=== PATIENT | male | born 1980 | race Caucasian/White ===

== ENCOUNTER 2017-02-12 14:19 | Emergency (ER) | payer MEDICAID ==
[2017-02-12 14:25] VITALS: RESP 18
[2017-02-12] MEDS ORDERED: IPRATROPIUM/ALBUTEROL 3 ML DEYVIAL IH ONE ×2 (14:58)
[2017-02-12] MEDS ORDERED: predniSONE 20 MG TAB PO ONE ×2 (15:12)
[2017-02-12] MEDS ORDERED: ALBUTEROL 3 ML DEYVIAL IH ONE ×4 (15:12)
--- NOTE | 2017-02-12 15:14 | EDPHY ---
H & P Time Seen by Provider: 02/12/17 15:04 HPI/ROS: CHIEF COMPLAINT: Cough and short of breath HISTORY OF PRESENT ILLNESS: Patient has had asthma since he was 7 years old. His triggers are getting a cold and cats. He has been sick for the last 2 days and his rescue inhaler isn't working. He has been exposed to his stepdachina cat recently has been getting some hay fever and allergies. Symptoms moderate. Worse with coughing and exertion. Not associated with fever chills or hemoptysis or leg swelling. REVIEW OF SYSTEMS: Eye: no change in vision ENT: no sore throat Cardiac: no chest pain or syncope Pulmonary: HPI Abdomen: no vomiting, diarrhea, abdominal pain Musculoskeletal: no back pain Skin: no rash Neuro: no headache Constitutional: no fever : no urinary symptoms A comprehensive 10 point review of systems is otherwise negative aside from elements mentioned in the history of present illness. PAST MEDICAL HISTORY: Asthma since 7 years old Social history: No primary care doctor, medicate patient. No recent travel or immobilization. General Appearance: Alert and conversant, cooperative. Eyes: No scleral icterus. ENT, Mouth: Normal mucous membranes. No angioedema. Respiratory: Bilateral wheezing and prolonged expiratory phase without any focal findings. Cardiovascular: Regular rate and rhythm. Gastrointestinal: Abdomen is soft and non tender. Neurological: Alert and oriented x3. Normally conversant. Face symmetric, normal movement and sensation in all extremities. Skin: Warm and dry, no rashes. No urticaria. Musculoskeletal: No peripheral edema and no joint swelling. No calf tenderness. Psychiatric: Not agitated. Emergency Department course/MDM: Plan for nebulizer treatments and prednisone discussed and consented. [facility] follow-up. Patient presents with his typical exacerbation of asthma. 1615: Feels better, wants to go. He still has some wheezing but he speaks in full sentences. Seen by case management to facilitate primary care follow-up with [facility]. Smoking Status: Current every day smoker Constitutional: Initial Vital Signs Temperature (C) 36.9 C 02/12/17 14:20 Heart Rate 101 H 02/12/17 14:20 Respiratory Rate 18 02/12/17 14:20 Blood Pressure 143/97 H 02/12/17 14:20 O2 Sat (%) 97 02/12/17 14:20 O2 Delivery Mode Room Air Allergies/Adverse Reactions: No Known Allergies Allergy (Unverified 02/12/17 14:25) Home Medications: Medication Instructions Recorded Albuterol Hfa Anes Only [Proair 2 puffs IH QID #1 mdi 02/12/17 Hfa Icu (*)] Albuterol Sulfate [Proventil Hfa] 6.7 gm IH 02/12/17 predniSONE [prednisone 20mg (RX)] 60 mg PO DAILY 5 Days tab 02/12/17 Medical Decision Making Differential Diagnosis: Differential diagnosis considered for shortness of breath including but not limited to pulmonary infectious process, COPD, asthma, pulmonary embolus and congestive heart failure. - Data Points Medications Given: Discontinued Medications Albuterol (Proventil Neb) 3 ml IH EDNOW ONE Stop: 02/12/17 15:13 Last Admin: 02/12/17 15:31 Dose: 3 ml Albuterol/Ipratropium (Duoneb) 3 ml IH EDNOW ONE Stop: 02/12/17 14:59 Last Admin: 02/12/17 15:12 Dose: 3 ml Prednisone (Prednisone) 60 mg PO EDNOW ONE Stop: 02/12/17 15:13 Last Admin: 02/12/17 15:30 Dose: 60 mg Departure - Departure Disposition: Home, Routine, Self-Care Clinical Impression: Exacerbation of asthma Qualifiers: Asthma severity: moderate Asthma persistence: unspecified Qualified Code(s): J45.901 - Unspecified asthma with (acute) exacerbation Condition: Good Instructions: Asthma (ED) Referrals: [facility],. [Clinic] - As per Instructions Prescriptions: Albuterol Hfa Anes Only [Proair Hfa Icu (*)] 2 puffs IH QID #1 mdi predniSONE [prednisone 20mg (RX)] 60 mg PO DAILY 5 Days tab
--- NOTE | 2017-02-12 16:43 | ASMTCMCOM ---
CM Note CM Note Notes: Case Management met with patient to go over referral to [facility] for follow up care. Patient has phone number and address for clinic and states that he will call for an intake appointment and prescription refills Date Signed: 02/12/2017 04:42 PM Electronically Signed By:Paula Azevedo RN
[2017-02-12 16:46] VITALS: BP 157/82; PULSE 105; TEMP 99.3; O2SAT 93
== END 2017-02-12 16:45 | disposition home or self-care (01) ==
DX: J45.901 Unspecified asthma with (acute) exacerbation (principal); F17.200 Nicotine dependence, unspecified, uncomplicated

== ENCOUNTER 2017-07-08 19:26 | Emergency (ER) | payer MEDICAID ==
--- NOTE | 2017-07-08 19:35 | EDPHY ---
H & P Stated Complaint: ASTHMA, WORSE OVER 2 DAYS, MOVING DAUGHTER, ALLERGIC TO CATS Source: Patient Exam Limitations: No limitations - Personal History Current Tetanus/Diphtheria Vaccine: Yes - Medical/Surgical History Hx Asthma: Yes Hx Chronic Respiratory Disease: No Hx Diabetes: No Hx Cardiac Disease: No Hx Renal Disease: No Hx Cirrhosis: No Hx Alcoholism: No Hx HIV/AIDS: No Hx Splenectomy or Spleen Trauma: No Other PMH: ASTHMA, APPY, HYPERCHOL - Social History Smoking Status: Former smoker Time Seen by Provider: 07/08/17 19:35 HPI/ROS: HPI: This is a 36-year-old male who presents with Chief Complaint: ASTHMA, WORSE OVER 2 DAYS, MOVING DAUGHTER, ALLERGIC TO CATS Location: Chest Quality: Dyspnea Duration: 2 days Signs and Symptoms: no shortness of breath at rest, no shortness of breath on exertion, no cough, no chest pain, no palpitations, no lower extremity edema, no wheezing, no orthopnea, no paroxysmal nocturnal dyspnea, no fever, no injury/ trauma, no hemoptysis, no carpal pedal spasms Timing: Worsening Severity: Moderate Context: Patient is a Former smoker, history of asthma, presents with 2 day history of worsening dyspnea with shortness of breath and accompanied by wheezing. He has been helping his child move who has cats. He is allergic to cats. Denies any chest pain/fever/cough/lower extremity edema/palpitations. He has never been intubated or hospitalized due to his asthma. He has been using his elbow futile inhaler and albuterol nebulizers without any improvement in his symptoms. Modifying Factors: See above Comment: ROS: see HPI Constitutional: No fever, no chills, no weight loss Eyes: No blurred vision Respiratory: + shortness of breath, + cough Cardiovascular: No chest pain, no palpitations, no lower extremity edema Gastrointestinal: No nausea, no vomiting, no diarrhea Genitourinary: No dysuria Extremities: No myalgias Neurologic: No weakness, no numbness Skin: No rashes Hematologic: No bruising, no bleeding MEDICAL/SURGICAL/SOCIAL HISTORY: Medical history: Asthma, hypercholesteremia Surgical history: Appendectomy Social history: . Employed. Family history noncontributory. CONSTITUTIONAL: Very pleasant middle-aged white male, awake and alert, no obvious distress HEENT: Atraumatic and normocephalic, PERRL, EOMI. Tympanic membranes clear. Oropharynx clear, no exudate and moist pink mucosa. Airway patent. No lymphadenopathy. No meningismus. Cardiovascular: Normal S1/S2, regular rate, regular rhythm, without murmur rub or gallop. PULMONARY/CHEST: Symmetrical and nontender. Tachypnea. Inspiratory and expiratory wheezing bilaterally. Good air movement. No accessory muscle usage. No retractions. ABDOMEN: Soft, nondistended, nontender, no rebound, no guarding, no peritoneal signs, no masses or organomegaly. No CVAT. EXTREMITIES: 2/2 pulses, strength 5/5, no deformities, no clubbing, no cyanosis or edema. NEUROLOGICAL: no focal neuro deficits. GCS 15. SKIN: Warm and dry, no erythema. no rash. Good capillary refill. (Chandrika Julien) Constitutional: Initial Vital Signs Temperature (C) 37.0 C 07/08/17 19:31 Heart Rate 108 H 07/08/17 19:31 Respiratory Rate 22 H 07/08/17 19:31 Blood Pressure 144/99 H 07/08/17 19:31 O2 Sat (%) 89 L 07/08/17 19:31 O2 Delivery Mode Room Air O2 (L/minute) 2 Allergies/Adverse Reactions: No Known Allergies Allergy (Unverified 07/08/17 19:30) Home Medications: Medication Instructions Recorded Albuterol Hfa Anes Only [Proair 2 puffs IH QID #1 mdi 02/12/17 Hfa Icu (*)] Albuterol Sulfate [Proventil Hfa] 6.7 gm 02/12/17 Benzonatate [Tessalon Pearles (RX)] 100 mg PO Q6 PRN #12 cap 07/08/17 predniSONE 50 mg PO DAILY 5 Days tablet 07/08/17 Medical Decision Making ED Course/Re-evaluation: Vital signs reviewed and show 89% on room air. Placed on oxygen 2 L nasal cannula. Medications and nebulizer therapy ordered. Patient given IM Solu-Medrol 125 mg, Benadryl 50 mg, DuoNeb and Tessalon Perles +criteria low for pulmonary embolism. Afebrile and no systemic signs to suspect pneumonia. 1999: Reassessed patient; slowly improving air movement. DuoNeb #2 Ordered 2099: Reassessed patient; O2 sats now at 97% on room air. Significantly improved aeration and vital signs. Asking to be discharged home. Appropriate to treat outpatient. This patient was seen under the supervision of my secondary supervising physician. I evaluated care for this patient independently. Discussed this patient with Dr. Conde who did not see the patient. (Chandrika Julien) The patient was evaluated and managed by the physician railway yard assistant. I have reviewed this chart and I agree with the findings and plan of care as documented , as indicated by my signature. I am the secondary supervising physician. ( Lilli Conde) Differential Diagnosis: Shortness of breath including but not limited to pulmonary infectious process, COPD, asthma, pulmonary embolus and congestive heart failure. (Chandrika Julien) - Data Points Medications Given: Discontinued Medications Albuterol/Ipratropium (Duoneb) 3 ml IH EDNOW ONE Stop: 07/08/17 19:38 Last Admin: 07/08/17 19:45 Dose: 3 ml Albuterol/Ipratropium (Duoneb) 3 ml IH EDNOW ONE Stop: 07/08/17 20:01 Last Admin: 07/08/17 20:04 Dose: 3 ml Benzonatate (Tessalon Pearles) 200 mg PO EDNOW ONE Stop: 07/08/17 19:38 Last Admin: 07/08/17 19:45 Dose: 200 mg Diphenhydramine HCl (Benadryl) 50 mg PO EDNOW ONE Stop: 07/08/17 20:02 Last Admin: 07/08/17 20:04 Dose: 50 mg Methylprednisolone Sodium Succinate (Solu-Medrol) 125 mg IM EDNOW ONE Stop: 07/08/17 19:38 Last Admin: 07/08/17 19:45 Dose: 125 mg Departure - Departure Disposition: Home, Routine, Self-Care Clinical Impression: Asthma with acute exacerbation in adult Qualifiers: Asthma severity: moderate Asthma persistence: persistent Qualified Code(s): J45.41 - Moderate persistent asthma with (acute) exacerbation Condition: Good Instructions: Asthma (ED), Allergies (ED) Additional Instructions: Take Benadryl 25-50 mg every 4-6 hours as needed for allergic reaction. Complete Prednisone 50 mg daily x 5 days. Use albuterol inhaler/nebulizer as needed for shortness of breath or wheezing. Avoid asthma exacerbation triggers including cats. Use Tessalon Perles every 6 hr as needed for cough. Return to the ER immediately if you experience new, worsening or continued shortness of breath, or any other symptoms that concern you. Referrals: PCP Not In,Dictionary [Medical Doctor] - As per Instructions Prescriptions: Benzonatate [Tessalon Pearles (RX)] 100 mg PO Q6 PRN #12 cap PRN Reason: Cough, Moderate predniSONE 50 mg PO DAILY 5 Days tablet
[2017-07-08] MEDS ORDERED: methylPREDNISolone SOD SUCC 125 MG/2 ML VIAL IM ONE (19:37)
[2017-07-08] MEDS ORDERED: IPRATROPIUM/ALBUTEROL 3 ML DEYVIAL IH ONE ×2 (19:37→20:00)
[2017-07-08] MEDS ORDERED: BENZONATATE 100 MG CAP PO ONE (19:37)
[2017-07-08] MEDS ORDERED: diphenhydrAMINE 25 MG CAP PO ONE (20:01)
[2017-07-08 21:08] VITALS: BP 145/97
== END 2017-07-08 21:07 | disposition home or self-care (01) ==
DX: J45.41 Moderate persistent asthma with (acute) exacerbation (principal); Z87.891 Personal history of nicotine dependence
CPT/HCPCS: J2930